=== PATIENT | female | born 1965 | race Caucasian/White ===

== ENCOUNTER 2020-07-10 12:07 | Inpatient (IN) | payer BC ==
[2020-07-10 13:49] LABS: Pregnancy Test - Urine (BHCG) Negative (Negative); Pregu Control Background? CLEAR/WHITE (CLR/WHITE); Pregu Control Bar Appear? YES (CONTROL BAR)
[2020-07-10 13:50] LABS: Bilirubin Neg (Negative); Blood, Urine Negative (Negative); Clarity Clear (Clear); Glucose, Urine (Dipstick) Normal (Negative); Ketone, Urine Negative (Negative); Leukocyte 25 (Negative); Nitrite Negative (Negative); Protein, Urine (Dipstick) Negative (Neg-Trace); Specific Gravity, Urine 1.015 (1.002-1.036); Urobilinogen Normal mg/dL (Less than 2); pH, Urine 6.5 (5.0-9.0)
[2020-07-10 13:57] LABS: Amphetamine Not Detected (NotDetected); Barbiturates Screen Not Detected (NotDetected); Benzodiazepine Screen Not Detected (NotDetected); Cocaine Metabolite Screen Not Detected (NotDetected); Methadone Not Detected (NotDetected); Methamphetamine Not Detected (NotDetected); Opiate Screen Not Detected (NotDetected); Oxycodone Screen Not Detected (NotDetected); Phencyclidine (PCP) Not Detected (NotDetected); THC/Cannabinoid Screen Not Detected (NotDetected); Tricyclic Screen Not Detected (NotDetected)
[2020-07-10 13:59] LABS: Specific Gravity 1.015 (1.002-1.036)
[2020-07-10 14:06] LABS: Bacteria/HPF None Seen HPF (None Seen); RBC/HPF None Seen HPF (0-3); Squamous Epithelial 0-3 HPF (0-3); WBC/HPF 0-3 HPF (0-3)
[2020-07-10 14:42] LABS: #Basophils 0.1 10x3/uL (0.0-0.2); #Eosinphils 0.1 10x3/uL (0.0-0.5); #Monocytes 0.4 10x3/uL (0.0-1.1); #Neutrophils 2.8 10x3/uL (1.5-8.4); %Basophils 0.9 % (0.0-2.0); %Eosinophils 1.6 % (0.0-6.0); %Lymphocytes 39.7 % (18.0-47.0); %Neutrophils 50.6 % (40.0-75.0); Hemoglobin 12.8 g/dL (12.0-15.5); Mean Corpuscular HGB CONC 31.8 g/dL (32.0-36.0); Mean Corpuscular Hemoglobin 26.5 pg (27.0-33.0); Mean Corpuscular Volume 83.2 fl (81.6-98.3); Mean Platelet Volume 9.2 fl (7.4-10.4); Platelet Count 186 10x3/uL (150-450); RBC Distribution Width 14.1 % (11.5-14.5); Red Blood Cell (RBC) Count 4.83 10x6/uL (3.90-5.03); White Blood Cell (WBC) Count 5.6 10x3/uL (3.5-10.5)
[2020-07-10 14:59] LABS: Acetaminophen Less than 6.0 mcg/mL (10.0-30.0); Alcohol 113 mg/dL (Less than 10); Salicylate Less than 8.0 mg/dL (15.0-30.0)
[2020-07-10 15:00] LABS: ALT (SGPT) 22 U/L (8-55); AST (SGOT) 25 U/L (5-34); Albumin 4.1 g/dL (3.5-5.0); Alkaline Phosphatase 133 U/L (40-110); Anion Gap 18 mmol/L (10-20); BUN (Urea Nitrogen) 14 mg/dL (9.8-20.1); Bilirubin, Total 0.2 mg/dL (0.2-1.2); CK (CPK) 54 U/L (29-168); Calc. Creatinine Clearance 0 mL/min (70-130); Calcium 8.5 mg/dL (7.8-10.44); Carbon Dioxide 21 mmol/L (22-29); Chloride 108 mmol/L (98-107); Globulin 3.2 g/dL (2.4-3.5); Glucose 64 mg/dL (70-105); Protein, Total 7.3 g/dL (6.0-8.3); Sodium 143 mmol/L (136-145)
[2020-07-10] MEDS ORDERED: Lacosamide 50 mg Tablet PO SCH (15:30)
[2020-07-10] MEDS ORDERED: levETIRAcetam 500 MG TAB PO SCH (15:30)
[2020-07-10] MEDS ORDERED: levETIRAcetam 500 MG TAB ONE (15:59)
[2020-07-10] MEDS ORDERED: Sodium Chloride 0.9% 1,000 ML IV SCH (17:15)
[2020-07-10 18:10] VITALS: BMI 33.2
[2020-07-10 18:33] LABS: Lactic Acid 2.5 mmol/L (0.5-2.2)
[2020-07-10] MEDS ORDERED: Lorazepam 2 MG/ML VIAL ONE (19:38)
[2020-07-10] MEDS: Dextrose 5 %-0.45 % NaCl 1,000 ML IV SCH (19:47)
[2020-07-10] MEDS: Acetaminophen 325 MG TAB PO PRN (20:23)
[2020-07-10] MEDS: levETIRAcetam 500 MG TAB PO SCH (21:00)
[2020-07-10] MEDS: Lacosamide 50 mg Tablet PO SCH (21:00)
[2020-07-10] MEDS ORDERED: Metoprolol Tartrate 5 MG/5 ML VIAL IVP SCH (22:00)
[2020-07-10 22:50] LABS: Anion Gap 13 mmol/L (10-20); BUN (Urea Nitrogen) 12 mg/dL (9.8-20.1); Calc. Creatinine Clearance 136 mL/min (70-130); Carbon Dioxide 23 mmol/L (22-29); Chloride 105 mmol/L (98-107); Glucose 99 mg/dL (70-105); Potassium 3.4 mmol/L (3.5-5.1); Sodium 138 mmol/L (136-145)
[2020-07-10] MEDS ORDERED: Potassium Chloride 20 MEQ TAB PO SCH (23:15)
[2020-07-10] MEDS: Lorazepam 2 MG/ML VIAL SLOW IVP PRN (23:18)
[2020-07-11] MEDS: Acetaminophen 325 MG TAB PO PRN ×2 (00:34→07:48)
[2020-07-11] MEDS: Ondansetron PF 4 MG/2 ML Vial IVP PRN (02:34)
[2020-07-11] MEDS: Dextrose 5 %-0.45 % NaCl 1,000 ML IV SCH ×3 (03:19→21:23)
[2020-07-11 06:06] LABS: Anion Gap 15 mmol/L (10-20); Globulin 2.8 g/dL (2.4-3.5)
[2020-07-11 06:08] LABS: #Eosinphils 0.1 10x3/uL (0.0-0.5); #Monocytes 0.5 10x3/uL (0.0-1.1); #Neutrophils 2.7 10x3/uL (1.5-8.4); %Basophils 0.6 % (0.0-2.0); %Lymphocytes 36.3 % (18.0-47.0); %Monocytes 8.9 % (0.0-10.0); Hemoglobin 11.1 g/dL (12.0-15.5); Mean Corpuscular HGB CONC 32.2 g/dL (32.0-36.0); Mean Corpuscular Hemoglobin 26.3 pg (27.0-33.0); Mean Corpuscular Volume 81.8 fl (81.6-98.3); Mean Platelet Volume 9.9 fl (7.4-10.4); Platelet Count 134 10x3/uL (150-450); Red Blood Cell (RBC) Count 4.22 10x6/uL (3.90-5.03); White Blood Cell (WBC) Count 5.1 10x3/uL (3.5-10.5)
[2020-07-11 06:22] LABS: ALT (SGPT) 18 U/L (8-55); AST (SGOT) 19 U/L (5-34); Albumin 3.6 g/dL (3.5-5.0); Alkaline Phosphatase 116 U/L (40-110); BUN (Urea Nitrogen) 9 mg/dL (9.8-20.1); Bilirubin, Total 0.6 mg/dL (0.2-1.2); Calc. Creatinine Clearance 136 mL/min (70-130); Calcium 8.2 mg/dL (7.8-10.44); Carbon Dioxide 23 mmol/L (22-29); Chloride 105 mmol/L (98-107); Glucose 97 mg/dL (70-105); Potassium 3.5 mmol/L (3.5-5.1); Protein, Total 6.4 g/dL (6.0-8.3); Sodium 139 mmol/L (136-145)
[2020-07-11] MEDS: levETIRAcetam 500 MG TAB PO SCH (08:39)
[2020-07-11] MEDS: Topiramate 25 MG TAB PO SCH ×2 (08:39→21:24)
[2020-07-11] MEDS: Multivit, Therapeutic 1 TAB PO SCH (08:40)
[2020-07-11] MEDS: Lacosamide 50 mg Tablet PO SCH ×2 (08:40→21:23)
[2020-07-11] MEDS: Folic Acid 1 MG TAB PO SCH (08:40)
[2020-07-11] MEDS: Thiamine 100 MG TAB PO SCH (08:41)
[2020-07-11] MEDS: Lorazepam 2 MG/ML VIAL SLOW IVP PRN ×2 (10:46→17:14)
[2020-07-11] MEDS ORDERED: levETIRAcetam 500 MG in Sodium Chloride 0.9% 100 ML IVPB SCH (12:15)
[2020-07-11] MEDS ORDERED: oxyCODONE 5 MG TAB PO SCH (13:45)
[2020-07-11] MEDS: Enoxaparin Sodium 40 MG/0.4 ML SYRINGE SC SCH (14:01)
[2020-07-11 18:12] LABS: Phosphorus 2.8 mg/dL (2.3-4.7)
[2020-07-11 18:16] LABS: ALT (SGPT) 18 U/L (8-55); AST (SGOT) 18 U/L (5-34); Albumin 3.9 g/dL (3.5-5.0); Alkaline Phosphatase 125 U/L (40-110); Anion Gap 13 mmol/L (10-20); BUN (Urea Nitrogen) 6 mg/dL (9.8-20.1); Bilirubin, Total 0.5 mg/dL (0.2-1.2); CK (CPK) 70 U/L (29-168); Calc. Creatinine Clearance 133 mL/min (70-130); Calcium 8.5 mg/dL (7.8-10.44); Carbon Dioxide 25 mmol/L (22-29); Chloride 106 mmol/L (98-107); Glucose 99 mg/dL (70-105); Potassium 3.6 mmol/L (3.5-5.1); Protein, Total 6.9 g/dL (6.0-8.3); Sodium 140 mmol/L (136-145)
[2020-07-11] MEDS: levETIRAcetam 1,500 MG, Admixture Fee 1 EACH in Sodium Chloride 0.9% 100 ML IVPB SCH (21:24)
[2020-07-11] MEDS: Lorazepam 2 MG/ML VIAL SLOW IVP SCH (22:45)
[2020-07-11 23:26] LABS: SARS-CoV-2 PCR by NAA DETECTED (NotDetected)
[2020-07-12] MEDS: Ondansetron PF 4 MG/2 ML Vial IVP PRN (01:32)
[2020-07-12] MEDS: Dextrose 5 %-0.45 % NaCl 1,000 ML IV SCH ×2 (04:49→12:48)
[2020-07-12] MEDS: Lorazepam 2 MG/ML VIAL SLOW IVP SCH ×4 (04:49→21:55)
[2020-07-12 06:47] LABS: #Eosinphils 0.1 10x3/uL (0.0-0.5); #Monocytes 0.4 10x3/uL (0.0-1.1); #Neutrophils 1.9 10x3/uL (1.5-8.4); %Basophils 0.7 % (0.0-2.0); %Eosinophils 3.3 % (0.0-6.0); %Lymphocytes 42.8 % (18.0-47.0); %Monocytes 8.7 % (0.0-10.0); %Neutrophils 44.3 % (40.0-75.0); Hemoglobin 11.4 g/dL (12.0-15.5); Mean Corpuscular HGB CONC 31.8 g/dL (32.0-36.0); Mean Corpuscular Hemoglobin 26.6 pg (27.0-33.0); Mean Corpuscular Volume 83.9 fl (81.6-98.3); Mean Platelet Volume 9.4 fl (7.4-10.4); Platelet Count 121 10x3/uL (150-450); RBC Distribution Width 14.2 % (11.5-14.5); Red Blood Cell (RBC) Count 4.28 10x6/uL (3.90-5.03); White Blood Cell (WBC) Count 4.3 10x3/uL (3.5-10.5)
[2020-07-12 06:54] LABS: Anion Gap 15 mmol/L (10-20); Globulin 2.9 g/dL (2.4-3.5)
[2020-07-12 07:00] LABS: ALT (SGPT) 16 U/L (8-55); AST (SGOT) 16 U/L (5-34); Albumin 3.5 g/dL (3.5-5.0); Alkaline Phosphatase 111 U/L (40-110); BUN (Urea Nitrogen) 7 mg/dL (9.8-20.1); Bilirubin, Total 0.4 mg/dL (0.2-1.2); Calc. Creatinine Clearance 138 mL/min (70-130); Calcium 8.2 mg/dL (7.8-10.44); Carbon Dioxide 21 mmol/L (22-29); Chloride 110 mmol/L (98-107); Glucose 104 mg/dL (70-105); Magnesium 1.9 mg/dL (1.6-2.6); Phosphorus 3.6 mg/dL (2.3-4.7); Potassium 3.5 mmol/L (3.5-5.1); Protein, Total 6.4 g/dL (6.0-8.3); Sodium 142 mmol/L (136-145)
[2020-07-12] MEDS ORDERED: levETIRAcetam 500 MG/5 ML VIAL ONE (08:31)
[2020-07-12] MEDS ORDERED: Sodium Chloride 0.9% 100 ML ONE (08:31)
[2020-07-12] MEDS: Folic Acid 1 MG TAB PO SCH (08:45)
[2020-07-12] MEDS: levETIRAcetam 1,500 MG, Admixture Fee 1 EACH in Sodium Chloride 0.9% 100 ML IVPB SCH ×2 (08:45→21:01)
[2020-07-12] MEDS: Multivit, Therapeutic 1 TAB PO SCH (08:45)
[2020-07-12] MEDS: Lacosamide 50 mg Tablet PO SCH ×2 (08:45→21:01)
[2020-07-12] MEDS: Topiramate 25 MG TAB PO SCH ×2 (08:45→21:01)
[2020-07-12] MEDS: Thiamine 100 MG TAB PO SCH (08:45)
[2020-07-12] MEDS: Enoxaparin Sodium 40 MG/0.4 ML SYRINGE SC SCH (12:48)
[2020-07-12] MEDS ORDERED: Aluminum & Magnesium Hydroxide 60 ML, Lidocaine 2% Viscous Solution 30 ML, diphenhydrAM... SSW PRN (13:30)
[2020-07-12 17:08] LABS: SARS-CoV-2 PCR by NAA Not Detected (NotDetected)
[2020-07-13] MEDS: Lorazepam 2 MG/ML VIAL SLOW IVP PRN ×3 (01:10→21:21)
[2020-07-13] MEDS: Dextrose 5 %-0.45 % NaCl 1,000 ML IV SCH ×3 (01:42→22:15)
[2020-07-13 05:09] LABS: #Eosinphils 0.2 10x3/uL (0.0-0.5); #Monocytes 0.3 10x3/uL (0.0-1.1); #Neutrophils 2.8 10x3/uL (1.5-8.4); %Basophils 0.7 % (0.0-2.0); %Eosinophils 3.5 % (0.0-6.0); %Lymphocytes 37.5 % (18.0-47.0); %Monocytes 6.2 % (0.0-10.0); %Neutrophils 51.6 % (40.0-75.0); Hemoglobin 10.9 g/dL (12.0-15.5); Mean Corpuscular HGB CONC 31.1 g/dL (32.0-36.0); Mean Corpuscular Hemoglobin 25.8 pg (27.0-33.0); Platelet Count 114 10x3/uL (150-450); RBC Distribution Width 14.4 % (11.5-14.5); Red Blood Cell (RBC) Count 4.23 10x6/uL (3.90-5.03); White Blood Cell (WBC) Count 5.5 10x3/uL (3.5-10.5)
[2020-07-13 05:28] LABS: ALT (SGPT) 12 U/L (8-55); AST (SGOT) 12 U/L (5-34); Albumin 3.2 g/dL (3.5-5.0); Alkaline Phosphatase 93 U/L (40-110); Anion Gap 11 mmol/L (10-20); BUN (Urea Nitrogen) 12 mg/dL (9.8-20.1); Bilirubin, Total 0.3 mg/dL (0.2-1.2); Calc. Creatinine Clearance 150 mL/min (70-130); Calcium 7.8 mg/dL (7.8-10.44); Carbon Dioxide 23 mmol/L (22-29); Chloride 111 mmol/L (98-107); Globulin 2.5 g/dL (2.4-3.5); Glucose 97 mg/dL (70-105); Magnesium 1.9 mg/dL (1.6-2.6); Potassium 3.5 mmol/L (3.5-5.1); Protein, Total 5.7 g/dL (6.0-8.3); Sodium 141 mmol/L (136-145)
[2020-07-13] MEDS: levETIRAcetam 1,500 MG, Admixture Fee 1 EACH in Sodium Chloride 0.9% 100 ML IVPB SCH ×2 (09:00→20:30)
[2020-07-13] MEDS: Topiramate 25 MG TAB PO SCH ×2 (09:01→20:20)
[2020-07-13] MEDS: Folic Acid 1 MG TAB PO SCH (09:01)
[2020-07-13] MEDS: Multivit, Therapeutic 1 TAB PO SCH (09:01)
[2020-07-13] MEDS: Thiamine 100 MG TAB PO SCH (09:01)
[2020-07-13] MEDS: Lacosamide 50 mg Tablet PO SCH ×2 (09:01→20:20)
[2020-07-13] MEDS: Enoxaparin Sodium 40 MG/0.4 ML SYRINGE SC SCH (13:36)
[2020-07-13] MEDS: Acetaminophen 325 MG TAB PO PRN (14:50)
[2020-07-13] MEDS: Ondansetron PF 4 MG/2 ML Vial IVP PRN (17:04)
[2020-07-13] MEDS ORDERED: levETIRAcetam 500 MG/5 ML VIAL ONE (20:11)
[2020-07-13] MEDS ORDERED: Sodium Chloride 0.9% 100 ML ONE (20:11)
[2020-07-13] MEDS ORDERED: diphenhydrAMINE 25 MG CAP PO SCH (23:15)
[2020-07-14] MEDS: Lorazepam 2 MG/ML VIAL SLOW IVP PRN ×5 (06:40→22:27)
[2020-07-14 06:50] LABS: #Eosinphils 0.2 10x3/uL (0.0-0.5); #Monocytes 0.3 10x3/uL (0.0-1.1); #Neutrophils 2.8 10x3/uL (1.5-8.4); %Basophils 0.5 % (0.0-2.0); %Eosinophils 3.7 % (0.0-6.0); %Lymphocytes 38.6 % (18.0-47.0); %Monocytes 5.5 % (0.0-10.0); %Neutrophils 51.2 % (40.0-75.0); Hemoglobin 10.3 g/dL (12.0-15.5); Mean Corpuscular HGB CONC 31.9 g/dL (32.0-36.0); Mean Corpuscular Hemoglobin 26.4 pg (27.0-33.0); Mean Corpuscular Volume 82.8 fl (81.6-98.3); Mean Platelet Volume 9.9 fl (7.4-10.4); Platelet Count 112 10x3/uL (150-450); RBC Distribution Width 14.4 % (11.5-14.5); White Blood Cell (WBC) Count 5.5 10x3/uL (3.5-10.5)
[2020-07-14 07:02] LABS: Anion Gap 9 mmol/L (10-20); BUN (Urea Nitrogen) 10 mg/dL (9.8-20.1); Calc. Creatinine Clearance 152 mL/min (70-130); Calcium 7.9 mg/dL (7.8-10.44); Carbon Dioxide 24 mmol/L (22-29); Chloride 112 mmol/L (98-107); Glucose 89 mg/dL (70-105); Potassium 3.4 mmol/L (3.5-5.1); Sodium 142 mmol/L (136-145)
[2020-07-14] MEDS: Dextrose 5 %-0.45 % NaCl 1,000 ML IV SCH ×2 (08:26→17:45)
[2020-07-14] MEDS ORDERED: Potassium Chloride 20 MEQ TAB PO SCH (08:30)
[2020-07-14] MEDS: Folic Acid 1 MG TAB PO SCH (09:27)
[2020-07-14] MEDS: Thiamine 100 MG TAB PO SCH (09:27)
[2020-07-14] MEDS: Lacosamide 50 mg Tablet PO SCH (09:27)
[2020-07-14] MEDS: Multivit, Therapeutic 1 TAB PO SCH (09:27)
[2020-07-14] MEDS: levETIRAcetam 1,500 MG, Admixture Fee 1 EACH in Sodium Chloride 0.9% 100 ML IVPB SCH (09:27)
[2020-07-14] MEDS: Topiramate 25 MG TAB PO SCH (09:28)
[2020-07-14] MEDS ORDERED: Lorazepam 1 MG TAB PO PRN (11:44)
[2020-07-14] MEDS: Enoxaparin Sodium 40 MG/0.4 ML SYRINGE SC SCH (14:03)
[2020-07-14] MEDS ORDERED: levETIRAcetam 500 MG TAB PO SCH ×2 (14:15→21:00)
[2020-07-14] MEDS ORDERED: diphenhydrAMINE 25 MG CAP PO SCH (18:00)
[2020-07-14] MEDS ORDERED: diphenhydrAMINE 12.5 MG/5 ML UDCUP ONE (18:12)
[2020-07-14] MEDS: Ondansetron PF 4 MG/2 ML Vial IVP PRN (18:14)
[2020-07-14 18:17] LABS: SARS-CoV-2 NAA Rapid Test Not Detected (NotDetected)
[2020-07-14] MEDS ORDERED: Melatonin 3 MG TAB PO PRN (22:32)
[2020-07-15] MEDS: Dextrose 5 %-0.45 % NaCl 1,000 ML IV SCH (04:59)
[2020-07-15 05:29] VITALS: TEMP 97.9
[2020-07-15 09:13] VITALS: BP 119/84
== END 2020-07-15 09:38 | disposition short-term general hospital (02) | DRG 918 ==
LOC: CSHERS 12:07 → CSHTELE 16:12 → UNDOADMOB 17:11 → CSHTELE 17:11 → INTOOBSV 17:11 → OBSVTOIN 07-11 08:51
PROVIDERS: ADMIT Internal Medicine; ATTEND Internal Medicine
DX: T43.212A Poisoning by selective serotonin and norepinephrine reuptake inhibitors, intentional self-harm, initial encounter (principal); F10.180 Alcohol abuse with alcohol-induced anxiety disorder; F32.9 Major depressive disorder, single episode, unspecified; G40.909 Epilepsy, unspecified, not intractable, without status epilepticus; Z91.14 Patient's other noncompliance with medication regimen; Z86.16 Personal history of COVID-19; R51.9 Headache, unspecified; R10.13 Epigastric pain; R11.0 Nausea; Z79.899 Other long term (current) drug therapy; Z88.0 Allergy status to penicillin; Z91.013 Allergy to seafood
CPT/HCPCS: 36415; 36416; 80048; 80053; 80306; 80307; 81003; 81015; 81025; 82550; 83605; 83735; 84100; 84146; 84443; 85025; 87635; 93005; 93010; 94760; 96372; 96374; 96375; 96376; G0378; J1650; J1953; J2060; J2405; J3490; J7042; Q0163; U0002; U0003; U0005